=== PATIENT | male | born 1975 | race Caucasian/White ===

== ENCOUNTER → 2018-06-17 | Outpatient (CLI) | payer BC | LOC: RAD 10:30 | DX: S62.336D Displaced fracture of neck of fifth metacarpal bone, right hand, subsequent encounter for fracture with routine healing (principal); X58.XXXD Exposure to other specified factors, subsequent encounter; M79.641 Pain in right hand ==

== ENCOUNTER → 2019-08-06 | Outpatient (CLI) | payer BC | LOC: LAB 14:37 | DX: J22 Unspecified acute lower respiratory infection (principal) ==

== ENCOUNTER 2021-01-21 13:53 | Outpatient (RCR) | payer BC | END 2021-02-18 17:00 | disposition home or self-care (01) | LOC: PT 13:53 | DX: S42.002B Fracture of unspecified part of left clavicle, initial encounter for open fracture (principal) ==

== ENCOUNTER → 2022-04-20 | Outpatient (CLI) | payer BC | LOC: RAD 16:28 | DX: M47.812 Spondylosis without myelopathy or radiculopathy, cervical region (principal) ==